=== PATIENT | female | born 1975 | race Caucasian/White ===

== ENCOUNTER 2019-02-12 10:00 | Emergency (ER) | payer SELFPAY ==
[2019-02-12 10:14] VITALS: BP 125/82; PULSE 80; TEMP 98.3; BMI 27.3
--- NOTE | 2019-02-12 10:42 | PDOC ---
History of Present Illness - General Chief Complaint: Laceration Stated Complaint: LACERATION DVEYN NAYANA RIGHT HAND Time Seen by Provider: 02/12/19 10:02 - History of Present Illness Initial Comments: 02/12/19 10:56 chief complaint: Laceration History of present illness: Patient cut the palm of her right hand on a broken glass. Bleeding, no pain. Review of systems: No distal numbness tingling or limited motion of the digits past medical history: Healthy, no active medical problems, specifically, no diabetes or heart disease social/family history reviewed and noncontributory Phsical exam: Alert oriented cheerful and cooperative no acute distress Afebrile, vital signs normal Right hand: 2 cm laceration of the palm, at the base of the index finger. No bleeding. No deformity. Full flexion against resistance of the PIP and DIP joints, fingers 2 and 3. Sensation int to light touch and pin prickall digits.pulses full, full range of motion of hand and fingers. Impression: Superficial laceration Plan: Local anesthesi explore, repair Past History - Past Medical History Allergies/Adverse Reactions: Allergies Allergy/AdvReac Type Severity Reaction Status Date / Time No Known Allergies Allergy Unverified 02/12/19 10:01 Home Medications: Ambulatory Orders NK [No Known Home Medication] 02/12/19 COPD: No - Surgical History Cardiac Surgery: Yes - Immunization History Immunization Up to Date: Yes - Suicide/Smoking/Psychosocial Hx Smoking History: Never smoked Hx Alcohol Use: No Drug/Substance Use Hx: No *Physical Exam - Vital Signs Last Vital Signs Temp Pulse Resp BP Pulse Ox 98.3 F 80 16 125/82 100 02/12/19 10:01 02/12/19 10:01 02/12/19 10:01 02/12/19 10:01 02/12/19 10:01 Medical Decision Making - Medical Decision Making 02/12/19 11:01 Procedure note: local anesthesia 1% lidocaine Wound was thoroughly prepped, sterilely draped, scrubbed and irrigated normal saline, explored superficial, no foreign body visualized or palpated. No deep structuers exposed , no deep punctures. Closed with 4-0 nylon interrupted skin sutures. Dressed bacitracin, 4 x 4, Guevara Wound care instructions. Suture removal 1 week *DC/Admit/Observation/Transfer Diagnosis at time of Disposition: Laceration - Discharge Dispostion Disposition: HOME Condition at time of disposition: Improved Decision to Admit order: No - Referrals - Patient Instructions Printed Discharge Instructions: DI for Laceration Repair Additional Instructions: keep clean and dry. Wound care as directed. Suture removal 7 days. Return for recheck if sign of infection. - Post Discharge Activity
== END 2019-02-12 10:53 | disposition home or self-care (01) ==
LOC: FER 10:00
PROC: 0HQFXZZ Repair Right Hand Skin, External Approach (ICD-10-PCS; principal; 2019-02-12)
DX: S61.411A Laceration without foreign body of right hand, initial encounter (principal); W25.XXXA Contact with sharp glass, initial encounter; Y93.89 Activity, other specified; Y92.89 Other specified places as the place of occurrence of the external cause
CPT/HCPCS: 99282-25

== ENCOUNTER 2019-02-18 12:31 | Emergency (ER) | payer SELFPAY ==
--- NOTE | 2019-02-18 12:37 | PDOC ---
*Physical Exam - Vital Signs Vital Signs Temp Pulse Resp BP Pulse Ox 98.6 F 68 20 116/79 99 02/18/19 12:32 02/18/19 12:32 02/18/19 12:32 02/18/19 12:32 02/18/19 12:32 02/18/19 12:56 Medical Decision Making - Medical Decision Making Pt seen for suture removal. Wound C/D/I, no pain, no drainage, sensation intact throughout hand Pt reports being compliant with wound care 3 sutures removed w/o complication and pt tolerated well Discharge instructions, wound care instructions, and return precautions given Plan for D/C Pt in agreement and verbalized understanding Dispo: home 02/18/19 12:56 *DC/Admit/Observation/Transfer Diagnosis at time of Disposition: Visit for suture removal - Discharge Dispostion Disposition: HOME Condition at time of disposition: Stable Decision to Admit order: No - Referrals Referrals: [facility] [place] [Provider Group] - Patient Instructions Printed Discharge Instructions: DI for Suture Removal Additional Instructions: You were seen in the Emergency Department for evaluation of suture removal. For the next 2 days you may use bacitracin or neosporin. To clean the wound wash with soap and water every day. Pat dry. After the next two days you may leave the wound open to air. Return to the Emergency Department if you develop redness around the wound, increased swelling, fevers, wound drainage, worsening symptoms, change in sensation/strength, or any new/concerning symptoms. Se lo atendi en el Departamento de Emergencias para evaluar la extraccin de suturas Madiha los prximos 2 baca puede usar bacitracin o neosporin. Para limpiar la herida isma con agua y jabn todos los baca. Seque. Despus de los dos baca siguientes, puede dejar la herida al aire. Regrese al Departamento de Emergencias si presenta enrojecimiento alrededor de la herida, aumento de la hinchazn, fiebres, drenaje de la herida, empeoramiento de los sntomas, cambio en la sensacin / fuerza o cualquier sntoma nuevo o relacionado. Print Language: UKRAINIAN - Post Discharge Activity
[2019-02-18 12:40] VITALS: BP 116/79; PULSE 68; TEMP 98.6; BMI 27.3
--- NOTE | 2019-02-18 12:52 | PDOC ---
Attending Attestation - Resident Resident Name: Sukhdeep Rico - ED Attending Attestation I have performed the following: I have examined & evaluated the patient, The case was reviewed & discussed with the resident, I agree w/resident's findings & plan - HPI HPI: 02/18/19 12:50 43y/o F with hand laceration on a broken glass edge (did not break on her) last week s/p lac repair. nvi, no infectious/neurovascular/pain complaints. - Physicial Exam PE: 02/18/19 12:50 vss wound c/d/i [address], no ttp, no palpable FB, full ROM with full strength digits, no redness/swelling/pus - Medical Decision Making 02/18/19 12:51 43y/o F for suture removal, uncomplicated hand laceration. no imaging done but pt cut on glass edge, no shards. nvi without evidence of infection. sutures removed with maintained excellent approximation of wound edges wound care discussed, return criteria discussed
== END 2019-02-18 12:54 | disposition home or self-care (01) ==
LOC: FER 12:31
DX: Z48.02 Encounter for removal of sutures (principal)
CPT/HCPCS: 99281-25

== ENCOUNTER 2019-04-23 10:52 | Emergency (ER) | payer OTHER ==
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
[2019-04-23 11:13] VITALS: BP 133/98; PULSE 82; TEMP 98.4; BMI 26.9
--- NOTE | 2019-04-28 08:50 | PATH ---
Surgical Pathology Report Patient Name: KYLE VALENTINE Med. Rec. #: [id number] /Age/Gender: 1975 (Age: 43) / F Account: [id number] Location: [facility] R Taken: 04/23/2019 Received: 04/24/2019 Reported: 04/28/2019 Physicians: Anh Winston M.D. Specimen(s) Received RIGHT HERNANDEZ SURFACE HAND GLASS REMOVED Clinical History Foreign body right hand Final Diagnosis GLASS, HAND, PALMAR SURFACE, RIGHT, REMOVAL: FOREIGN BODY MATERIAL. MACROSCOPIC DIAGNOSIS. Electronically Signed Silvina Whitmore M.D. Gross Description Received fresh labeled "right palmar surface of hand glass removed" is an irregular fragment of partially bloody clear glass measuring 1 x 0.7 x 0.5. No soft tissue identified, for gross examination only. MLSZ/04/24/2019 sanml/04/24/2019
== END 2019-04-23 12:24 | disposition home or self-care (01) ==
LOC: FER 10:52
DX: S60.551A Superficial foreign body of right hand, initial encounter (principal); W25.XXXA Contact with sharp glass, initial encounter; W45.8XXA Other foreign body or object entering through skin, initial encounter; Y93.89 Activity, other specified; Y92.89 Other specified places as the place of occurrence of the external cause
CPT/HCPCS: 73130-TC-RT-FY; 88300-TC; 99282-25